=== PATIENT | female | born 1965 | race Caucasian/White ===

== ENCOUNTER → 2017-01-29 | Outpatient (CLI) | payer OTHER ==
[~2017-01-29] MED LIST: ASPI-515 PO; ATOR20TA9 PO; CITA20TA5 PO; DAY QUIL PO; FLUT100B INH; GABA300C10 PO; LORA10CA PO; LORA1TAB PO; OXYC-302 PO; OXYC1TAB7 PO; OXYC5CAP2 PO; PROM25SU34 RC; TRAZ50TA18 PO; TRAZODONE PO; TRIA15CR3 TP; ZOLP10TA5 PO
== END ==
LOC: CFH 12:25
PROVIDERS: ATTEND Internal Medicine Critical Care Medicine
DX: D86.0 Sarcoidosis of lung (principal)
CPT/HCPCS: 71250

== ENCOUNTER → 2019-04-23 | Outpatient (CLI) | payer BC ==
[~2019-04-23] MED LIST changes: +ATOR20TA37 PO; -ATOR20TA9 PO; -CITA20TA5 PO; +CITA20TA6 PO; -TRAZ50TA18 PO; +TRAZ50TA66 PO; -TRIA15CR3 TP; +TRIA15CR61 TP
== END | disposition home or self-care (01) ==
LOC: CFH 09:34
PROVIDERS: ATTEND Internal Medicine
DX: N20.0 Calculus of kidney (principal); K80.20 Calculus of gallbladder without cholecystitis without obstruction; D86.0 Sarcoidosis of lung; R06.02 Shortness of breath
CPT/HCPCS: 71250

== ENCOUNTER 2019-05-20 11:54 | Outpatient (CLI) | payer BC | END 2019-05-20 23:59 | disposition home or self-care (01) | LOC: CFH 11:54 | PROVIDERS: ATTEND Internal Medicine Cardiovascular Disease | DX: R00.2 Palpitations (principal); R06.02 Shortness of breath | CPT/HCPCS: 93306 ==

== ENCOUNTER 2019-06-17 10:38 | Observation (INO) | payer BC ==
[~2019-06-17] VITALS: Ht 175.3 cm; Wt 97.8 kg
[2019-06-17] MEDS: SODIUM CHLORIDE 0.9% 1,000 ML IV SCH ×3 (10:50→17:42)
[2019-06-17] MEDS ORDERED: BUDE10.2 INH (11:08)
[2019-06-17] MEDS ORDERED: ALBU8.5H8 INH (11:08)
[2019-06-17] MEDS ORDERED: LORA-446 PO (11:08)
[2019-06-17] MEDS ORDERED: OXYC-302 PO (11:15)
[2019-06-17 11:17] VITALS: BP 119/65
[2019-06-17] MEDS ORDERED: MIDAZOLAM 1 MG/ML, 5ML ONE (11:41)
[2019-06-17] MEDS ORDERED: LIDOCAINE 2%, 20ML ONE (11:41)
[2019-06-17] MEDS ORDERED: CEFAZOLIN PMX 1GM/50ML 0 ML ONE (11:41)
[2019-06-17] MEDS ORDERED: FENTANYL PF 100 MCG/2ML ONE (11:41)
[2019-06-17] MEDS ORDERED: CEFAZOLIN 1,000 MG ONE (11:41)
[2019-06-17] MEDS ORDERED: VANCOMYCIN PMX 1GM/200ML 200 ML ONE (11:43)
[2019-06-17] MEDS ORDERED: VANCOMYCIN 500 MG ONE (11:43)
[2019-06-17] MEDS ORDERED: VANCOMYCIN PMX 1GM/200ML 200 ML IVPB SCH (11:45)
[2019-06-17 11:50] LABS: BASOPHILS # (AUTO) 0.03 x10^3/uL (0-0.1); BASOPHILS % (AUTO) 1 % (0-1); EOSINOPHILS # (AUTO) 0.04 x10^3/uL (0-0.4); EOSINOPHILS % (AUTO) 1 % (1-7); LYMPHOCYTES # (AUTO) 1.48 x10^3/uL (1-3.4); LYMPHOCYTES % (AUTO) 33 % (22-44); MD NO; MEAN CORPUSCULAR HEMOGLOBIN 29.9 pg (27.0-34.8); MEAN CORPUSCULAR HGB CONC 33.8 g/dL (32.4-35.8); MEAN CORPUSCULAR VOLUME 88.2 fL (80-100); MEAN PLATELET VOLUME 7.8 fL (7.4-10.4); MONOCYTES # (AUTO) 0.34 x10^3/uL (0.2-0.8); MONOCYTES % (AUTO) 8 % (2-9); NEUTROPHILS # (AUTO) 2.59 x10^3/uL (1.8-6.8); NEUTROPHILS % (AUTO) 58 % (42-75); PLATELET COUNT 304 x10^3/uL (130-400); RED BLOOD COUNT 4.61 x10^6/uL (3.82-5.3); RED CELL DISTRIBUTION WIDTH 12.8 % (9.6-15.2)
[2019-06-17 11:59] LABS: ANION GAP 8 mmol/L (5-15); CALCIUM 8.6 mg/dL (8.5-10.1); CHLORIDE 109 mmol/L (98-107)
[2019-06-17 12:00] LABS: CREATININE 0.69 mg/dL (0.55-1.02)
[2019-06-17] MEDS ORDERED: DIPHENHYDRAMINE 50 MG/ML, 1ML ONE (12:29)
[2019-06-17] MEDS ORDERED: ZOLPIDEM 5MG TABLET PO PRN (13:30)
[2019-06-17] MEDS ORDERED: LORazepam 1MG TABLET PO PRN (13:30)
[2019-06-17] MEDS ORDERED: ALBUTEROL SULFATE INH PRN (13:30)
[2019-06-17] MEDS ORDERED: HOLD MEDICATION MC PRN (13:30)
[2019-06-17] MEDS ORDERED: ACETAMINOPHEN 325 MG TABLET PO PRN (13:30)
[2019-06-17 15:10] VITALS: BP 140/84
[2019-06-17] MEDS: GABAPENTIN 300 MG CAPSULE PO SCH ×2 (15:30→18:49)
[2019-06-17] MEDS: OXYcodone/APAP 5/325MG TABLET PO SCH ×3 (15:30→21:30)
[2019-06-17 16:09] VITALS: BP 140/84
[2019-06-17 18:55] VITALS: BP 142/90
[2019-06-17] MEDS ORDERED: TRAZODONE 50MG TABLET PO SCH (21:00)
[2019-06-17] MEDS ORDERED: SODIUM CHLORIDE FLUSH 10ML SYR IVF SCH (21:00)
[2019-06-17] MEDS ORDERED: CITALOPRAM 20 MG TABLET PO SCH (21:00)
[2019-06-18 01:30] VITALS: BP 103/65
[2019-06-18] MEDS: OXYcodone/APAP 5/325MG TABLET PO SCH ×2 (01:30→06:41)
[2019-06-18] MEDS: GABAPENTIN 300 MG CAPSULE PO SCH (06:41)
[2019-06-18 08:13] VITALS: BP 119/82
[2019-06-18] MEDS ORDERED: (Budesonide/Formoterol Fumarate (Symbicort 160-4.5 Mcg Inhaler INH SCH (09:00)
[2019-06-18] MEDS ORDERED: TRAZODONE 50MG TABLET PO SCH (09:00)
== END 2019-06-18 11:51 | disposition home or self-care (01) ==
LOC: CACL 10:38 → ORIP 13:06 → 5SO 15:00
PROVIDERS: ADMIT Internal Medicine Cardiovascular Disease; ATTEND Internal Medicine Cardiovascular Disease
DX: I49.5 Sick sinus syndrome (principal); R55 Syncope and collapse; D86.0 Sarcoidosis of lung; R00.2 Palpitations; R00.1 Bradycardia, unspecified; Z79.899 Other long term (current) drug therapy; G89.29 Other chronic pain; Z85.3 Personal history of malignant neoplasm of breast
CPT/HCPCS: 33208; 36005; 36415; 71045; 71046; 80048; 85025; 99156; 99157; C1779; C1785; C1892; G0378; J1200; J2250; J3010; J3370; J3490; J7030; Q9967; J0690